=== PATIENT | male | born 1995 | race Caucasian/White ===

== ENCOUNTER 2016-12-21 21:57 | Emergency (ER) | payer SELFPAY ==
[~2016-12-21] VITALS: Ht 175.3 cm; Wt 80.0 kg
[2016-12-21 21:59] VITALS: BP 149/90; PULSE 111; RESP 15; TEMP 98; O2SAT 98
== END 2016-12-21 23:03 | disposition left against medical advice (07) ==
LOC: NED 21:57
DX: L98.9 Disorder of the skin and subcutaneous tissue, unspecified (principal)
CPT/HCPCS: 99281